=== PATIENT | male | born 1995 | race Caucasian/White ===

== ENCOUNTER → 2017-02-26 | Outpatient (CLI) | payer OTHER ==
--- NOTE | 2017-02-26 18:01 | Diagnostic Imaging Report ---
EXAMINATION: Ultrasound of the neck. INDICATION: Right neck lump. COMPARISON: There are no prior studies available for comparison. FINDINGS: By history, the patient has a palpable abnormality in the right neck. It is my understanding that the abnormality has been there for approximately two years. On this study, there is a 2.4 x 1.7 x 3.3 cm solid mass in the area of the patient's palpable abnormality. This seems to lie just lateral to the right submandibular gland. The mass itself is interposed between the internal and external carotid arteries. This mass does not have the appearance of a lymph node, although its precise etiology is not certain. The possibility that this is a carotid body tumor (chemodectoma or paraganglioma) should certainly be considered. I would recommend that CT of the neck with and without contrast be performed for further study. There is no other mass or adenopathy noted. The thyroid gland, where visualized, is unremarkable. IMPRESSION: 1. There is a 2.4 x 1.7 x 3.3 cm soft tissue mass interposed between the internal and external carotid arteries on the right. This may represent a carotid body tumor. CT of the neck would be recommended for further study. 2. There is no acute abnormality identified, and there is no other mass or adenopathy noted. Dictated by: Dictated on workstation # [id number]
== END ==
LOC: RAD 09:00
PROVIDERS: ATTEND Nurse Practitioner Family
DX: R22.1 Localized swelling, mass and lump, neck (principal)
CPT/HCPCS: 76536

== ENCOUNTER → 2018-04-10 | Outpatient (CLI) | payer OTHER ==
[~2018-04-10] MED LIST: IOHEXOL 350 MG/ML 100 ML (OMNIPAQUE 350) VIAL IV ONE; NS 250 ML (IVPB) BAG IV ONE
--- NOTE | 2018-04-10 10:15 | Diagnostic Imaging Report ---
CLINICAL INDICATION: Patient's right side is swollen and has enlarged over the past couple of years. EXAM: Axial CT scan of the neck performed with 75 cc of Omnipaque 350 IV contrast. Coronal and sagittal reformatted images are created. COMPARISON: Ultrasound of the neck soft tissue dated 02/26/2017. FINDINGS: There is a 2.1 cm x 2.5 cm x 3.2 cm (AP x Trans x CC) heterogeneously enhancing mass in the right carotid space. A portion of this mass extends between the right ICA and right ECA. This mass previously measured 2.4 cm x 1.7 cm x 3.3 cm on the comparison ultrasound exam. There is another heterogeneously enhancing mass in the high right carotid space which is seen posterior and lateral to the distal right ICA and medial and slightly anterior to the right jugular vein. This lesion measures 0.9 cm x 1.3 cm x 1.6 cm (AP x Trans x CC). The visualized bilateral neck vascular structures are patent. There is no lymphadenopathy. The nasopharynx, oropharynx, hypopharynx, and laryngeal soft tissue structures are unremarkable. The bilateral salivary glands and thyroid gland are unremarkable. The visualized upper lung oneil are clear. There is straightening of the cervical spine posture which is nonspecific. Limited visualization of intracranial structures are unremarkable. IMPRESSION: 1: There is a 3.2 cm heterogeneously enhancing mass in the right carotid space which sits just distal to the right CCA bifurcation and between the right cervical ICA and right ECA. 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 3: The remainder of the CT neck exam is unremarkable. Dictated by: Dictated on workstation # [id number]
== END ==
LOC: RAD 09:15
PROVIDERS: ATTEND Nurse Practitioner Family
DX: D44.6 Neoplasm of uncertain behavior of carotid body (principal)
CPT/HCPCS: 70491